=== PATIENT | female | born 1990 | race Caucasian/White ===

== ENCOUNTER 2017-08-17 02:34 | Emergency (ER) | payer OTHER, BC ==
[~2017-08-17] VITALS: Ht 167.6 cm; Wt 72.6 kg
--- NOTE | 2017-08-17 02:49 | NUR ---
BIBSELF, C/O BURNING/FREQUENT URINATION X 1 DAY. PT AOX 3 RR EVEN AND UNLABORED. NO SOB NOTED. NAD NOTED. NO NVD AT THIS TIME. PT GOWNED. NOT DIAPHORETIC. PT WAITING FOR MD YEAGER. URINE COLLECTED,
--- NOTE | 2017-08-17 02:51 | NUR ---
DR. CARTY AT BEDSIDE FOR EVAL.
[2017-08-17] MEDS ORDERED: KETOROLAC TROMETHAMINE INJ 30 MG/ML VIAL ONE (02:57)
[2017-08-17] MEDS ORDERED: KETOROLAC TROMETHAMINE INJ 30 MG/ML VIAL IM ONE (03:00)
[2017-08-17 03:06] LABS: APPEARANCE,URINE CLEAR (CLEAR); BILIRUBIN,URINE NEGATIVE (NEGATIVE); BLOOD, URINE TRACE-INTA Ery/uL (NEGATIVE); KETONES,URINE NEGATIVE (NEGATIVE); LEUKOCYTE ESTERASE ,URINE NEGATIVE (NEGATIVE); NITRITE, URINE NEGATIVE (NEGATIVE); PROTEIN,URINE NEGATIVE (NEGATIVE); UGLUCOSE NEGATIVE (NEGATIVE); UROBILINOGEN,URINE 0.2 EU/dL (0.2)
--- NOTE | 2017-08-17 03:19 | NUR ---
KHADIJAH AT BEDSIDE
[2017-08-17 03:51] LABS: COLOR,URINE STRAW (YELLOW)
[2017-08-17 03:57] LABS: BACTERIA,URINE Rare /HPF (None Seen); SQUAMOUS EPITHELIAL CELL,UR Rare /HPF (None Seen); WBC,URINE 0-2 /HPF (0-3)
[2017-08-17] MEDS ORDERED: CEPHALEXIN MONOHYDRATE 500 MG CAPSULE PO ONE ×2 (04:08→04:30)
--- NOTE | 2017-08-17 04:10 | NUR ---
DR. CARTY AT BEDSIDE SPEAKING TO PT REGARDING RESULTS.
--- NOTE | 2017-08-17 04:15 | NUR ---
Patient discharged to home in stable condition. Written and verbal after care instructions given. Patient verbalizes understanding of instruction. ambulatory with a steady gait
[2017-08-17 04:18] VITALS: BP 126/68
== END 2017-08-17 04:19 | disposition home or self-care (01) ==
LOC: ER 02:34
DX: N12 Tubulo-interstitial nephritis, not specified as acute or chronic (principal)
CPT/HCPCS: 76770; 81001; 84703; 96372; 99285; J1885; 81000-TC